=== PATIENT | female | born 1950 | race Hispanic/Latino ===

== ENCOUNTER 2019-03-09 11:58 | Observation (INO) | payer MEDICARE ==
[2019-03-09 12:53] LABS: #Lymphocytes 1.2 thou/uL (1.20-3.40); #Monocytes 0.5 thou/uL (0.11-0.59); #Neutrophils 3.4 thou/uL (1.40-6.50); %Eosinophils 0.8 % (0.0-10.0); %Lymphocytes 22.6 % (21.0-51.0); %Neutrophils 66.6 % (42.0-75.0); Hemoglobin 12.4 g/dL (12.0-16.0); Mean Corpuscular HGB CONC 32.4 g/dL (32.0-36.0); Mean Corpuscular Hemoglobin 30.9 pg (27.0-31.0); Mean Corpuscular Volume 95.4 fL (78.0-98.0); Platelet Count 136 thou/uL (130-400); RBC Distribution Width 12.7 % (11.5-14.5); Red Blood Cell (RBC) Count 4.02 mill/uL (4.20-5.40); White Blood Cell (WBC) Count 5.1 thou/uL (4.8-10.8)
[2019-03-09 13:14] LABS: ALT (SGPT) 10 U/L (8-55); AST (SGOT) 12 U/L (5-34); Alkaline Phosphatase 57 U/L (40-150); Anion Gap 8 mmol/L (10-20); BUN (Urea Nitrogen) 16 mg/dL (9.8-20.1); Bilirubin, Total 0.4 mg/dL (0.2-1.2); Calc. Creatinine Clearance 0 mL/min (70-130); Calcium 10.3 mg/dL (7.8-10.44); Carbon Dioxide 29 mmol/L (23-31); Chloride 109 mmol/L (98-107); Estimated GFR-MDRD 39; Globulin 2.9 g/dL (2.4-3.5); Glucose 105 mg/dL (80-115); Potassium 4.8 mmol/L (3.5-5.1); Protein, Total 6.9 g/dL (6.0-8.3); Sodium 141 mmol/L (136-145)
[2019-03-09] MEDS ORDERED: ISOVUE-370 76%-LOCM 1 ML ONE (13:38)
--- NOTE | 2019-03-09 14:48 | CT ---
CT Pelvis W Con HISTORY: Patient had heart catheterization last Ike now noting a knot in groin. COMPARISON: None. FINDINGS: A partially visualized cystic-appearing lesion is seen in the right lower quadrant presumab ly arising from the lower pole of the right kidney it measures 6 cm in size. There is an area of dense calcification with some associated soft tissue change along the anterior lateral margin of the right psoas muscle I believe this is related to phleboliths in this region. It is felt to be an incidental finding. There is no signs of any retroperitoneal hematoma. There is sigmoid diverticulosi s noted. In the right groin region directly anterior to the common femoral artery is an area of soft tissue de nsity which also shows what may be some minimal contrast within it this is only 19 mm in size it could represent a hematoma, but if this is true contrast enhancement within this, then it may represe nt a small pseudoaneurysm and ultrasound would be recommended for further assessment. IMPRESSION: Possible small pseudoaneurysm of the right groin as described above. Ultrasound examinati on would be recommended for better assessment.
--- NOTE | 2019-03-09 16:16 | ULT ---
US Pseudo Aneurysm Randy Evl HISTORY: Abnormal CT showing possible small pseudoaneurysm. COMPARISON: CT examination done earlier today. FINDINGS: Ultrasound study confirms the presence of a small pseudoaneurysm directly anterior to the r ight common femoral vein, the main abnormality visualized is a small trickle of flow arising from the common femoral artery, there is no significant hematoma present. IMPRESSION: Small pseudoaneurysm.
[2019-03-09] MEDS ORDERED: Fentanyl 100 MCG/2 ML VIAL ONE (16:32)
[2019-03-09] MEDS ORDERED: HYDROcodone/Acetaminophen 10/325 mg Tablet PO PRN (21:06)
[2019-03-09] MEDS ORDERED: Acetaminophen 325 MG TAB PO PRN (21:06)
[2019-03-09] MEDS ORDERED: Ondansetron ODT 4 MG TAB PO PRN (21:06)
[2019-03-09] MEDS ORDERED: diphenhydrAMINE 25 MG CAP PO PRN (21:09)
[2019-03-09] MEDS ORDERED: Labetalol HCl 100 MG/20 ML VIAL SLOW IVP PRN ×2 (21:29→21:30)
--- NOTE | 2019-03-09 21:35 | PDOC.FPRHP ---
- Allergies/Adverse Reactions Allergies Allergy/AdvReac Type Severity Reaction Status Date / Time budesonide [From Symbicort] Allergy Increase Verified 11/08/15 02:30 Glaucoma IOP codeine Allergy Verified 11/08/15 01:12 formoterol fumarate Allergy Increase Verified 11/08/15 02:30 [From Symbicort] Glaucoma IOP morphine Allergy Verified 11/08/15 01:12 acetaminophen [From Lortab] AdvReac Hives Verified 11/08/15 01:12 hydrocodone bitartrate AdvReac Hives Verified 11/08/15 01:12 [From Lortab] tizanidine AdvReac HALLUCINATI Verified 11/08/15 01:12 ON - Home Medications Medication Instructions Recorded Confirmed Type Brimonidine Tartrate [Brimonidine 1 drop EA EYE TID 11/08/15 11/08/15 History Tartrate 0.15% Ophth Soln] Docusate [Colace] 1 tab PO DAILY 11/08/15 11/08/15 History Fluticasone/Salmeterol [Advair 1 inh IH BID 11/08/15 11/08/15 History Diskus 250/50] Ipratropium/Albuterol Sulfate 1 puff INH QID 11/08/15 11/08/15 History [Combivent Respimat] Ipratropium/Albuterol Sulfate 3 ml NEB QID PRN 11/08/15 11/08/15 History [DuoNeb] Lactobacillus Acidophilus 1 cap PO DAILY 11/08/15 03/09/19 History [Probiotic] Methocarbamol [Robaxin-750] 0.5 tab PO QPM 11/08/15 03/09/19 History Montelukast Sodium [Singulair] 10 mg PO DAILY 11/08/15 03/09/19 History Ranitidine HCl 1 tab PO QPM 11/08/15 03/09/19 History metFORMIN [Glucophage] 1,000 mg PO BID-WM 11/08/15 03/09/19 History Ergocalciferol (Vitamin D2) 50,000 unit PO Q7DAYS #8 capsule 11/09/15 Rx [Vitamin D2] Lisinopril/Hydrochlorothiazide 1 tablet PO DAILY 11/09/15 03/09/19 History [Lisinopril-Hctz 20-12.5 mg Tab] Docusate [Colace] 03/09/19 History Fluticasone/Salmeterol [Advair 03/09/19 History Diskus 100/50] HYDROcodone/Acetaminophen [[place] 03/09/19 History 10-325 Tablet] Ipratropium/Albuterol Sulfate 03/09/19 History [DuoNeb] Levothyroxine Sodium [Synthroid] 125 mcg PO 0600 03/09/19 03/09/19 History Lovastatin [Mevacor] 20 gm PO DAILY 03/09/19 03/09/19 History - History PMHx: PSHx: FHx: Social: - Vital signs BP: [] HR: [] RR: [] Tmax: [] Pox: []% on [] Wt: [] FMR H&P: Results - Labs Result Diagrams: 03/09/19 12:40 03/09/19 12:40 Lab results: WBC 5.1 thou/uL (4.8-10.8) 03/09/19 12:40 Hgb 12.4 g/dL (12.0-16.0) 03/09/19 12:40 Hct 38.4 % (36.0-47.0) 03/09/19 12:40 MCV 95.4 fL (78.0-98.0) 03/09/19 12:40 Plt Count 136 thou/uL (130-400) 03/09/19 12:40 Neutrophils % 66.6 % (42.0-75.0) 03/09/19 12:40 Sodium 141 mmol/L (136-145) 03/09/19 12:40 Potassium 4.8 mmol/L (3.5-5.1) 03/09/19 12:40 Chloride 109 mmol/L (98-107) H 03/09/19 12:40 Carbon Dioxide 29 mmol/L (23-31) 03/09/19 12:40 BUN 16 mg/dL (9.8-20.1) 03/09/19 12:40 Creatinine 1.35 mg/dL (0.6-1.1) H 03/09/19 12:40 Glucose 105 mg/dL (80-115) 03/09/19 12:40 Calcium 10.3 mg/dL (7.8-10.44) 03/09/19 12:40 Total Bilirubin 0.4 mg/dL (0.2-1.2) 03/09/19 12:40 AST 12 U/L (5-34) 03/09/19 12:40 ALT 10 U/L (8-55) 03/09/19 12:40 Alkaline Phosphatase 57 U/L (40-150) 03/09/19 12:40 Serum Total Protein 6.9 g/dL (6.0-8.3) 03/09/19 12:40 Albumin 4.0 g/dL (3.4-4.8) 03/09/19 12:40 FMR H&P: Upper Level - Plan Date/Time: 03/09/192131 PCP: Pedro HPI: This is a68 yo F being admitted for evaluation of pseudoaneurysm s/p catheterization. She had a heart cath in the R groin on Friday 03/02 and per her report it was normal and she did not need any stents or interventions. She was having pain in her leg throughout the week but today noticed a lump in her right leg so came into the ED for evaluation. She states the pain is 8/10 when someone touches it but more manageable when at rest. She does not think movement exacerbated it during the day but is not sure, she was ambulating without difficulty during the week, she did her laundry walking up and down several sets of stairs multiple times. She did have some dizziness and nausea which she attributes to the pain, but denies syncope, chest pain, palpitations, or SOB at this time. 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 for 45 min twice After second course aneurysm appears to decreased in size on bedside US Fentanyl 100mcg 500ml NS PMH: COPD, DM2, hypothyroidism, iron def anemia, HTN, OA, chronic back/neck pain , CKD3 PSH: mult orthopedic surgeries hands and knees, Heart cath, thyroidectomy, neck fusion, hysterectomy, breast reduction Meds: Cymbalta, Advair, levothyroxine, lisinopril/hctz, lovastatin, metformin, singulair, ranitidine, norco 10mg q6 prn (says she only takes this 1-2 times per month), robaxin Allergies: codeine, morphine (itching), tizanidine Soc Hx: 1-2 cigarettes per day since age 22, 1ppd at most, social alcohol, no drugs Fm Hx: father colon cancer, heart disease (unsure of age of onset) REVIEW OF SYSTEMS: Gen: no fever, chills, or sweats Neuro: no numbness/tingling, no weakness, denies headache Eyes: no visual changes ENT: no hearing changes, no sore throat, no runny nose Resp: no cough, no SOB, no wheeze Card: denies chest pain, no palpitations GI: no vomiting, no diarrhea, no abdominal pain, + nausea : no dysuria, no hematuria MSK: see hpi Heme: see hpi Skin: no rash, no erythema Vitals: 114/67, Pulse: 75, Resp: 14, Temp: 98.2 (Oral), O2 sat: 96 on Room Air , kg 77 PHYSICAL EXAMINATION: General: NAD, alert and oriented x3 HEENT: PERRLA, EOMI, normal sclera, oropharynx without erythema or exudate Neck: Supple. Full ROM. Heart/Cardiovascular System: RRR, no rub, no murmur Lungs/Respiratory System: clear to auscultation bilaterally. No increased work of breathing. Room air. Abdomen/Gastro-Intestinal System: no abdominal tenderness, normal bowel sounds, no masses, no organomegaly Extremeties: 1 x2 cm nodule at right groin, pulses intact, cap refill <3 Neuro: No gross deficits appreciated. CN 2-12 grossly intact Psychiatry: Awake, Alert and cooperative with exam Skin/ Integumentory: No lesions, rashes, or ulcers, easy bruising throughout A/P: # Pseudoaneurysm s/p catheterization - 1.25 x 0.5 cm on US, appears to have improved on bedside US after holding pressure - in setting of pain and >1 cm evaluation is warranted, CV surgery was consulted from ED and recd admission. Based on bedside US may do ok without intervention. Appreciate CV surg recs - bed rest, pain control, NPO overnight [email or web address] # HTN - home meds - PRN labetalol # COPD - home meds, nebs prn # DM2 - metformin, HH diet, consistent carbs # CKD3 - appears to be at baseline Cr, compared to 2016 labs Fluids: NS 100ml/hr Code status: full PPx: none, bleeding risk Dispo: pending CV eval Addendum - Attending - Attending Attestation Date/Time: 03/09/19 6430 I personally evaluated the patient and discussed the management with Dr. Ramos I agree with the History, Examination, Assessment and Plan documented above with any addition or exceptions noted below. Pleasant 68 yo HTN DM2 female s/p negative heart cath last week with development pseudoanuersym right groin cath site pressure held on site for 90 minutes in ER and and will admit patient for observation and Cardiovascular to evaluate in am she is NPO for now and hemodynamically stable. PMHX notable for CKD for which metformin and ACEI held and assumed prior diverticular bleed requiring multiple transfusions in the past none last 3 years. Ovarian/uterine carcinoma s/p hysterectomy oophorectomy.
--- NOTE | 2019-03-09 22:18 | PDOC.EVN ---
Event Note - Event Note Event Note: Paged for "dark chocolate" colored stool, ordered FOBT which came back positive Patient came in with supratherapeutic INR, GI bleed is possibility BP was 69/29 with patient resting comfortably on L side, patient AxOx3, knows president, complains about leg pain Re-positioned patient. BP 86/40 Will bolus 500ml. Trying to be judicious on fluid resuscitation 2/2 ESRD. With lactic acid trending down to 0.7 it appears she is perfusing tissues will. Will hold off from pressors for now, but watch closely
[2019-03-09 22:55] VITALS: BMI 32.3
--- NOTE | 2019-03-09 23:11 | PDOC.EVN ---
Event Note - Event Note Event Note: Cath was done at Med do not have records
[2019-03-09] MEDS: Sodium Chloride 0.9% 1,000 ML IV SCH (23:57)
[2019-03-10 04:53] LABS: #Eosinphils 0.1 thou/uL (0.0-0.7); #Lymphocytes 1.3 thou/uL (1.20-3.40); #Monocytes 0.6 thou/uL (0.11-0.59); #Neutrophils 2.6 thou/uL (1.40-6.50); %Basophils 0.5 % (0.0-1.0); %Eosinophils 1.5 % (0.0-10.0); %Lymphocytes 27.4 % (21.0-51.0); %Monocytes 12.4 % (0.0-10.0); %Neutrophils 58.2 % (42.0-75.0); Hemoglobin 12.4 g/dL (12.0-16.0); Mean Corpuscular HGB CONC 32.4 g/dL (32.0-36.0); Mean Corpuscular Hemoglobin 30.9 pg (27.0-31.0); Mean Corpuscular Volume 95.5 fL (78.0-98.0); Platelet Count 136 thou/uL (130-400); RBC Distribution Width 12.8 % (11.5-14.5); Red Blood Cell (RBC) Count 4.01 mill/uL (4.20-5.40); White Blood Cell (WBC) Count 4.6 thou/uL (4.8-10.8)
[2019-03-10 05:15] LABS: Anion Gap 8 mmol/L (10-20); BUN (Urea Nitrogen) 10 mg/dL (9.8-20.1); Calc. Creatinine Clearance 70 mL/min (70-130); Calcium 9.9 mg/dL (7.8-10.44); Carbon Dioxide 28 mmol/L (23-31); Chloride 109 mmol/L (98-107); Estimated GFR-MDRD 56; Glucose 102 mg/dL (80-115); Potassium 4.3 mmol/L (3.5-5.1); Sodium 141 mmol/L (136-145)
--- NOTE | 2019-03-10 05:56 | PDOC.FM ---
- Subjective Subjective: Still a little nauseous. She says she is no longer dizzy, but thinks it is dependent on laying down. She has a headache, but she hasn't eaten in 2 days and she has a history of migraines. She has some sensitivity to light but she says it is not to bad. Localized to R forehead, constant, and dull. She has pain in the R lower abdomen to the R proximal thigh. - Objective MAR Reviewed: Yes Vital Signs & Weight: Vital Signs (12 hours) Temp Pulse Resp BP BP Pulse Ox 03/10/19 04:00 97.9 F 51 L 18 136/63 96 03/10/19 00:00 20 03/09/19 22:16 98.2 F 60 20 168/73 H 96 03/09/19 21:06 967 H Weight Weight 80.371 kg Result Diagrams: 03/10/19 04:32 03/10/19 04:32 EKG Reviewed by me: Yes (5 beats of VTach overnight, Sinus lula, Minor ST depression on Tele) Phys Exam - Physical Examination Constitutional: NAD HEENT: PERRLA, moist MMs Neck: supple Respiratory: clear to auscultation bilateral Cardiovascular: RRR Systolic murmur Gastrointestinal: soft, non-tender, positive bowel sounds Musculoskeletal: no edema Neurological: non-focal, moves all 4 limbs Lymphatic: no nodes Psychiatric: normal affect, A&O x 3 Deviation from normal: Bruising in the lower right abdomen and right proximal thigh Dx/Plan (1) Aneurysm artery, femoral Code(s): I72.4 - ANEURYSM OF ARTERY OF LOWER EXTREMITY Status: Acute (2) CKD stage 3 secondary to diabetes Code(s): E11.22 - TYPE 2 DIABETES MELLITUS W DIABETIC CHRONIC KIDNEY DISEASE; N18.3 - CHRONIC KIDNEY DISEASE, STAGE 3 (MODERATE) Status: Chronic (3) COPD (chronic obstructive pulmonary disease) Status: Chronic Qualifiers: COPD type: unspecified COPD Qualified Code(s): J44.9 - Chronic obstructive pulmonary disease, unspecified (4) DMII (diabetes mellitus, type 2) Status: Acute Qualifiers: Diabetes mellitus complication status: with kidney complications Diabetes mellitus complication detail: with chronic kidney disease Chronic kidney disease stage: stage 3 (moderate) (5) HTN (hypertension) Code(s): I10 - ESSENTIAL (PRIMARY) HYPERTENSION Status: Chronic (6) Hypothyroid Code(s): E03.9 - HYPOTHYROIDISM, UNSPECIFIED Status: Chronic Qualifiers: Hypothyroidism type: postoperative Qualified Code(s): E89.0 - Postprocedural hypothyroidism - Plan Plan: Ms. Reno is a 68 yo F with history of COPD, DMII, Hypothyroidism, Iron deficiency anemia, HTN, OA, Chronic back/neck pain, CKD3 who presents with R groin pseudoaneurysm s/p cath (03/02 @ the Med). 1. Pseudoaneurysm s/p catheterization * 1.25 x 0.5 cm on US, appears to have improved on bedside US after Cath team held pressure in ED * CT: Possible small pseudoaneurysm of right groin, better assessed with US. * In setting of pain and >1 cm evaluation is warranted, CV surgery was consulted from ED and recd admission. Based on bedside US may do ok without intervention. * CV surg consulted, appreciate recs. Surgery was planned, but US again and determined strict bed rest for now. * Bed rest, pain control, NPO overnight 2. HTN * home meds: Lisinopril/HCTZ * PRN labetalol 3. COPD * Home meds: Dulera, Singulair * Duonebs prn 4. DM2 * Metformin, HH diet, consistent carbs 5. CKD3 * Appears to be at baseline Cr, compared to 2016 labs * Cr Cl: 69 ml/min 6. Hypothyroidism s/p Thyroidectomy * Contine Levo 7. HLD * Continue home med: Simvistatin Fluids: NS 100ml/hr Diet: HH Code status: Full Code GI PPx: Pepcid VTE PPx: None, bleeding risk Dispo: Pending CV eval. Possibly 1-2 night stay. Addendum - Attending - Attending Attestation Date/Time: 03/10/19 920 I personally evaluated the patient and discussed the management with Dr. Garber I agree with the History, Examination, Assessment and Plan documented above with any addition or exceptions noted below. Continue medical management chronic conditions and observation regard any need surgical intervention.
[2019-03-10] MEDS: Levothyroxine Sodium 125 MCG TAB PO SCH (06:00)
--- NOTE | 2019-03-10 06:17 | CON ---
DATE OF CONSULTATION: HISTORY OF PRESENT ILLNESS: This is a 68-year-old female followed by Dr. stockton and referred to Dr. Cornelio Carias for stress testing. This ultimately lead to a cardiac catheterization and all results are unavailable to me. However, the patient says her cardiac cath was normal. Catheterization was done on 03/02, and the patient noted some sensitivity in the right groin, progressing to discomfort, and she presented to the emergency room where she was found to have a right femoral false aneurysm. Compression x2 resulted in failure of the femoral artery leak to subside. PAST MEDICAL HISTORY: Includes hypertension, currently not on lisinopril because her blood pressure was low when she visited Dr. stockton. she has diabetes mellitus, currently trying to control this with diet only and not using metformin. She also has elevated cholesterol level. She does smoke. She has a history of COPD. PAST SURGICAL HISTORY: Significant for multiple procedures on her, including orthopedic surgery of hand and knees, thyroid surgery, neck fusion, hysterectomy , and breast reduction. HOME MEDICATIONS: Are listed as [id number] medicines; 1. Cymbalta 30 b.i.d. 2. Iron 150 at bedtime. 3. Eye drops. 4. Advair Diskus. 5. DuoNebs. 6. Combivent. 7. Ranitidine 150 q.p.m. 8. Lovastatin 20 at bedtime. 9. Levothyroxine 125 daily. 10. Singulair. ALLERGIES: SHE REPORTS ALLERGIES TO CODEINE AND MORPHINE, ALTHOUGH SHE DOES TAKE NORCO AT HOME. PHYSICAL EXAMINATION: GENERAL: Alert and cooperative lady. VITAL SIGNS: Height 5 feet 2 inches, weight 177. EXTREMITIES: Examination of her lower extremities reveals palpable pulsatile mass above the puncture site which is very tender. She has bruising in that area as well as extending down to the mid thigh with palpable popliteal pulse. Given the compression treatment on 2 occasions and still with a tender pulsatile mass, we will plan on surgical exploration today. Informed consent has been obtained. Job ID: [id number] MTDD
[2019-03-10] MEDS: Mometasone/Formoterol 120 PUFF INHALER INH SCH ×2 (07:30→18:57)
[2019-03-10] MEDS ORDERED: metFORMIN 500 MG TAB PO SCH (08:00)
[2019-03-10] MEDS: DULoxetine 30 MG CAP PO SCH ×2 (08:48→20:19)
[2019-03-10] MEDS: Montelukast Sodium 10 mg Tablet PO SCH (08:49)
[2019-03-10] MEDS: Ascorbic Acid 500 mg Chewable Tablet PO SCH (08:49)
[2019-03-10] MEDS: Sodium Chloride 0.9% 1,000 ML IV SCH ×3 (08:49→21:12)
[2019-03-10] MEDS: Cyanocobalamin (Vitamin B-12) 1,000 MCG TAB PO SCH (08:49)
[2019-03-10] MEDS: Docusate 100 MG CAP PO SCH (08:49)
[2019-03-10] MEDS: Lisinopril/Hydrochlorothiazide 20 mg/12.5 mg Tablet PO SCH ×2 (08:50→12:43)
[2019-03-10] MEDS ORDERED: SOY ISOFLA PO SCH (09:00)
[2019-03-10] MEDS ORDERED: Prevnar 13-Val Conj/PF 0.5 ML SYRINGE IM ONE (09:00)
[2019-03-10] MEDS ORDERED: [UNRECOGNIZED DRUG - OTHER] PO SCH (09:00)
[2019-03-10] MEDS ORDERED: BLK COHOSH PO SCH (09:00)
[2019-03-10] MEDS ORDERED: MAG BARK PO SCH (09:00)
--- NOTE | 2019-03-10 10:04 | ULT ---
RIGHT GROIN ULTRASOUND: HISTORY: Evaluation of pseudoaneurysm. COMPARISON: Prior day's exam. FINDINGS: On today's study, the small pseudoaneurysm noted on the prior examination does not show any flow. A small 5 x 17 mm area of hematoma is noted. IMPRESSION: No flow is demonstrated within the previously noted pseudoaneurysm. POS: [facility]
[2019-03-10] MEDS: Simvastatin 5 MG TAB PO SCH (20:20)
[2019-03-10] MEDS: Fish Oil 1,000 MG CAP PO SCH (20:20)
[2019-03-10] MEDS: Famotidine 20 MG TAB PO SCH (20:20)
[2019-03-10] MEDS: Ferrous Sulfate 325 MG TAB PO SCH (20:20)
[2019-03-11 05:09] LABS: #Eosinphils 0.1 thou/uL (0.0-0.7); #Lymphocytes 1.3 thou/uL (1.20-3.40); #Monocytes 0.7 thou/uL (0.11-0.59); %Basophils 0.4 % (0.0-1.0); %Lymphocytes 21.7 % (21.0-51.0); %Neutrophils 65.8 % (42.0-75.0); Hemoglobin 12.4 g/dL (12.0-16.0); Mean Corpuscular HGB CONC 32.8 g/dL (32.0-36.0); Mean Corpuscular Hemoglobin 31.3 pg (27.0-31.0); Mean Corpuscular Volume 95.4 fL (78.0-98.0); Mean Platelet Volume 9.2 fL (7.4-10.4); Platelet Count 130 thou/uL (130-400); RBC Distribution Width 12.7 % (11.5-14.5); Red Blood Cell (RBC) Count 3.98 mill/uL (4.20-5.40)
[2019-03-11 05:29] LABS: Anion Gap 10 mmol/L (10-20); BUN (Urea Nitrogen) 12 mg/dL (9.8-20.1); Calc. Creatinine Clearance 66 mL/min (70-130); Calcium 10.1 mg/dL (7.8-10.44); Carbon Dioxide 27 mmol/L (23-31); Chloride 107 mmol/L (98-107); Estimated GFR-MDRD 53; Glucose 103 mg/dL (80-115); Potassium 4.7 mmol/L (3.5-5.1); Sodium 139 mmol/L (136-145)
[2019-03-11] MEDS: Levothyroxine Sodium 125 MCG TAB PO SCH (05:37)
[2019-03-11] MEDS: Mometasone/Formoterol 120 PUFF INHALER INH SCH ×2 (07:09→18:48)
[2019-03-11] MEDS: Sodium Chloride 0.9% 1,000 ML IV SCH ×3 (07:09→18:25)
--- NOTE | 2019-03-11 07:40 | PDOC.FM ---
- Subjective Subjective: Pt complains of overnight R sciatic pain. Air mattress placed last night, says pain is much improved. - Objective MAR Reviewed: Yes Vital Signs & Weight: Vital Signs (12 hours) Temp Pulse Resp BP BP Pulse Ox 03/11/19 07:11 98 F 62 18 150/71 H 94 L 03/11/19 04:00 98.2 F 56 L 16 138/64 97 03/11/19 00:00 98.3 F 56 L 18 158/68 H 158/68 H 95 03/10/19 20:00 98.1 F 65 18 135/62 135/62 95 Weight Weight 81.329 kg I&O: 03/10/19 03/11/19 03/12/19 06:59 06:59 06:59 Intake Total 580 3945 Output Total 700 2700 Balance -120 1245 Result Diagrams: 03/11/19 04:34 03/11/19 04:34 EKG Reviewed by me: Yes (Normal sinus rhythm. HR: 50-60s) Phys Exam - Physical Examination Constitutional: NAD HEENT: PERRLA Neck: supple Respiratory: clear to auscultation bilateral Cardiovascular: RRR, no significant murmur Gastrointestinal: soft, positive bowel sounds Tender in RLQ near cath site Musculoskeletal: no edema, pulses present Right sciatic nerve pain Neurological: non-focal, moves all 4 limbs Lymphatic: no nodes Psychiatric: normal affect, A&O x 3 Skin: no rash Deviation from normal: Bruising in R groin Dx/Plan (1) Aneurysm artery, femoral Code(s): I72.4 - ANEURYSM OF ARTERY OF LOWER EXTREMITY Status: Acute (2) CKD stage 3 secondary to diabetes Code(s): E11.22 - TYPE 2 DIABETES MELLITUS W DIABETIC CHRONIC KIDNEY DISEASE; N18.3 - CHRONIC KIDNEY DISEASE, STAGE 3 (MODERATE) Status: Chronic (3) COPD (chronic obstructive pulmonary disease) Status: Chronic Qualifiers: COPD type: unspecified COPD Qualified Code(s): J44.9 - Chronic obstructive pulmonary disease, unspecified (4) DMII (diabetes mellitus, type 2) Status: Acute Qualifiers: Diabetes mellitus complication status: with kidney complications Diabetes mellitus complication detail: with chronic kidney disease Chronic kidney disease stage: stage 3 (moderate) (5) HTN (hypertension) Code(s): I10 - ESSENTIAL (PRIMARY) HYPERTENSION Status: Chronic (6) Hypothyroid Code(s): E03.9 - HYPOTHYROIDISM, UNSPECIFIED Status: Chronic Qualifiers: Hypothyroidism type: postoperative Qualified Code(s): E89.0 - Postprocedural hypothyroidism - Plan Plan: Ms. Reno is a 68 yo F with history of COPD, DMII, Hypothyroidism, Iron deficiency anemia, HTN, OA, Chronic back/neck pain, CKD3 who presents with R groin pseudoaneurysm s/p cath (03/02 @ the [facility]). 1. Pseudoaneurysm s/p catheterization * 1.25 x 0.5 cm on US, appears to have improved on bedside US after Cath team held pressure in ED * CT: Possible small pseudoaneurysm of right groin, better assessed with US. * In setting of pain and >1 cm evaluation is warranted, CV surgery was consulted from ED and recd admission. Based on bedside US may do ok without intervention. * CV surg consulted, appreciate recs. Surgery was planned, but US again 03/10 showed no flow in pseudoaneurysm and determined strict bed rest for now. * Bed rest, pain control, NPO overnight 2. HTN * Home med restarted: Lisinopril/HCTZ * Monitoring Creatinine: 1.03 today * PRN labetalol * BP elevated today, pt says due to sciatic pain 3. COPD * Home meds: Dulera, Singulair * Duonebs prn 4. DM2 * Consistent Carb diet * Dietary management, stopped metformin 3 years ago * Glucose 108 this morning 5. CKD3 * Appears to be at baseline Cr, compared to 2016 labs * Cr Cl: 69 ml/min 03/10 * Electrolytes normal, Ma.0 6. Hypothyroidism s/p Thyroidectomy * Contine Levo * TSH: 2.47 7. HLD * Continue home med: Simvistatin Fluids: NS 100ml/hr Diet: CC Code status: Full Code GI PPx: Pepcid VTE PPx: None, bleeding risk Dispo: Pending CV eval. Possibly 1-2 night stay. Addendum - Attending - Attending Attestation Date/Time: 03/11/19 1300 I personally evaluated the patient and discussed the management with Dr. Garber I agree with the History, Examination, Assessment and Plan documented above with any addition or exceptions noted below. BP elevated will adjust rx otherwise expectant management for any need operative intervention right groin pseudoaneursym s/p heart cath.
[2019-03-11] MEDS: DULoxetine 30 MG CAP PO SCH ×2 (08:34→20:26)
[2019-03-11] MEDS: Lisinopril/Hydrochlorothiazide 20 mg/12.5 mg Tablet PO SCH (08:34)
[2019-03-11] MEDS: Cyanocobalamin (Vitamin B-12) 1,000 MCG TAB PO SCH (08:34)
[2019-03-11] MEDS: Ascorbic Acid 500 mg Chewable Tablet PO SCH (08:34)
[2019-03-11] MEDS: Docusate 100 MG CAP PO SCH (08:34)
[2019-03-11] MEDS: Montelukast Sodium 10 mg Tablet PO SCH (08:35)
[2019-03-11] MEDS ORDERED: Amlodipine 5 MG TAB PO SCH (14:45)
[2019-03-11] MEDS: Simvastatin 5 MG TAB PO SCH (20:25)
[2019-03-11] MEDS: Ferrous Sulfate 325 MG TAB PO SCH (20:26)
[2019-03-11] MEDS: Fish Oil 1,000 MG CAP PO SCH (20:26)
[2019-03-11] MEDS: Famotidine 20 MG TAB PO SCH (20:26)
[2019-03-12] MEDS: Sodium Chloride 0.9% 1,000 ML IV SCH (04:42)
[2019-03-12] MEDS: Levothyroxine Sodium 125 MCG TAB PO SCH (06:03)
--- NOTE | 2019-03-12 06:08 | PDOC.FM ---
- Subjective Subjective: No acute events overnight. Patient doing well. Reports her tight groin is still mildly tender to palpation, but much improved. Ate a fruit plate last night for dinner, tolerated it well. Eager to go home. Denies chest pain, SOB, abdominal pain, dizziness. - Objective Vital Signs & Weight: Vital Signs (12 hours) Temp Pulse Resp BP BP Pulse Ox 03/12/19 04:00 98.5 F 64 18 139/66 95 03/12/19 00:00 98.8 F 64 18 134/64 95 03/11/19 20:00 98.6 F 72 18 147/68 H 147/68 H 96 Weight Weight 80.83 kg I&O: 03/10/19 03/11/19 03/12/19 06:59 06:59 06:59 Intake Total 580 3945 3590 Output Total 700 2700 6980 Balance -120 5880 -3080 Result Diagrams: 03/11/19 04:34 03/11/19 04:34 Radiology Reviewed by me: Yes Phys Exam - Physical Examination Constitutional: NAD HEENT: moist MMs Respiratory: no wheezing, no rales, no rhonchi Cardiovascular: RRR, no significant murmur Gastrointestinal: soft, non-tender Musculoskeletal: no edema Deviation from normal: Ecchymosis surrounding location on R groin where they did her heart cath. -: Mild ecchymosis on R wrist where they first attempted heart cath. Dx/Plan (1) Aneurysm artery, femoral Code(s): I72.4 - ANEURYSM OF ARTERY OF LOWER EXTREMITY Status: Acute (2) DMII (diabetes mellitus, type 2) Status: Acute Qualifiers: Diabetes mellitus complication status: with kidney complications Diabetes mellitus complication detail: with chronic kidney disease Chronic kidney disease stage: stage 3 (moderate) (3) Hypertriglyceridemia Code(s): E78.1 - PURE HYPERGLYCERIDEMIA Status: Acute (4) CKD stage 3 secondary to diabetes Code(s): E11.22 - TYPE 2 DIABETES MELLITUS W DIABETIC CHRONIC KIDNEY DISEASE; N18.3 - CHRONIC KIDNEY DISEASE, STAGE 3 (MODERATE) Status: Chronic (5) COPD (chronic obstructive pulmonary disease) Status: Chronic Qualifiers: COPD type: unspecified COPD Qualified Code(s): J44.9 - Chronic obstructive pulmonary disease, unspecified (6) HTN (hypertension) Code(s): I10 - ESSENTIAL (PRIMARY) HYPERTENSION Status: Chronic (7) Hypothyroid Code(s): E03.9 - HYPOTHYROIDISM, UNSPECIFIED Status: Chronic Qualifiers: Hypothyroidism type: postoperative Qualified Code(s): E89.0 - Postprocedural hypothyroidism - Plan Plan: Ms. Reno is a 68 yo F with history of COPD, DMII, Hypothyroidism, Iron deficiency anemia, HTN, OA, Chronic back/neck pain, CKD3 who presents with R groin pseudoaneurysm s/p cath (03/02 [facility] # Pseudoaneurysm s/p catheterization * 1.25 x 0.5 cm on US, appears to have improved on bedside US after Cath team held pressure in ED * CT: Possible small pseudoaneurysm of right groin, better assessed with US. * In setting of pain and >1 cm evaluation is warranted, CV surgery was consulted from ED and recd admission. Based on bedside US may do ok without intervention. * CV surg consulted, appreciate recs. US 03/10 showed no flow in pseudoaneurysm and determined strict bed rest for now vs surgery. * Bed rest, pain control # HTN * Home med restarted 03/10: Lisinopril/HCTZ * Monitoring Creatinine: 1.03 03/11 * PRN labetalol * BP this am 139/66, 134/64 at 0000 earlier this am # COPD * Home meds: Dulera, Singulair * Duonebs prn # DM2 * Consistent Carb diet, d/c fluids * Dietary management, stopped metformin 3 years ago * Glucose 114 this morning # CKD3 * Appears to be at baseline Cr of 1.03, 1.35 on admission, compared to 2016 labs * GFR 53, 39 on admission * Cr Cl: 69 ml/min 03/10 * Electrolytes normal, Ma.0 # Hypothyroidism s/p Thyroidectomy * Contine Levo * TSH: wnl at 2.47 # HLD * Continue home med: Simvistatin Fluids: NS 100ml/hr Diet: CC Code status: Full Code GI PPx: Pepcid VTE PPx: None, bleeding risk Dispo: Likely d/c today following Dr. Willis's recs. Addendum - Attending - Attending Attestation Date/Time: 03/12/19 1700 I personally evaluated the patient and discussed the management with Dr. Bran. I agree with the History, Examination, Assessment and Plan documented above with any addition or exceptions noted below. Swelling in groin is improving. Will f/u with CV surg on possible discharge.
[2019-03-12] MEDS: Mometasone/Formoterol 120 PUFF INHALER INH SCH (06:34)
[2019-03-12] MEDS: Cyanocobalamin (Vitamin B-12) 1,000 MCG TAB PO SCH (08:36)
[2019-03-12] MEDS: Lisinopril/Hydrochlorothiazide 20 mg/12.5 mg Tablet PO SCH (08:37)
[2019-03-12] MEDS: Docusate 100 MG CAP PO SCH (08:37)
[2019-03-12] MEDS: Ascorbic Acid 500 mg Chewable Tablet PO SCH (08:37)
[2019-03-12] MEDS: Montelukast Sodium 10 mg Tablet PO SCH (08:37)
[2019-03-12] MEDS: DULoxetine 30 MG CAP PO SCH (08:37)
[2019-03-12] MEDS ORDERED: Amlodipine 5 MG TAB PO SCH (09:00)
[2019-03-12 12:44] VITALS: TEMP 98.6
[2019-03-12 14:00] VITALS: BP 132/65
--- NOTE | 2019-03-13 03:44 | DIS ---
DATE OF ADMISSION: 03/09/2019 DATE OF DISCHARGE: 03/12/2019 ADMITTING RESIDENT: Andres Ramos MD ADMITTING ATTENDING: Frank Prater MD. DISCHARGE RESIDENT: Ronit Bran MD DISCHARGE ATTENDING: Anna Smith MD. CONSULTS: Dr. Willis from Cardiovascular Surgery. PROCEDURES: None. IMAGIN. 03/09, pelvic CT: Possible small pseudoaneurysm versus hematoma of the right groin, 19 mm in size. 2. 03/09, compression ultrasound: Small pseudoaneurysm. 3. 03/10, compression ultrasound: No flow demonstrated in previously recognized pseudoaneurysm. PRIMARY DIAGNOSIS: R Femoral pseudoaneurysm with no flow, SECONDARY DIAGNOSES: HTN, COPD, DM2, CKD3, HLD, Hypothyroidism status post thyroidectomy DISCHARGE MEDICATIONS: 1. Amlodipine 5 mg p.o. daily. 2. Vitamin C 1000 mg p.o. daily. 3. Brimonidine tartrate 15 ml one drop each eye at bedtime. 4. Vitamin D3 80685 units p.o. at bedtime. 5. B12 2500 mcg p.o. daily. 6. Cymbalta 30 mg p.o. b.i.d. 7. Advair Diskus 100/50 one puff inhaled b.i.d. 8. Combivent Respimat 2 puffs inhaled daily. 9. Iron 325 mg p.o. at bedtime. 10. Levothyroxine 125 mcg p.o. daily. 11. Lisinopril/HCTZ 20/12.5 p.o. daily. 12. Lovastatin 20 mg p.o. at bedtime. 13. Montelukast 10 mg p.o. at bedtime. 14. Fish oil 1000 mg p.o. at bedtime. 15. Ranitidine 150 mg p.o. at bedtime. 16. Estroven 155 mg p.o. daily. DISCONTINUED MEDICATIONS: 1. Famotidine 20 mg p.o. at bedtime. 2. Woodruff 10/325 q.4h p.r.n. 3. Benadryl 25 mg p.o. q.6h p.r.n. 4. Colace 100 mg p.o. daily. 5. Dulera 2 puffs inhaled b.i.d. 6. Simvastatin 10 mg p.o. at bedtime. 7. Normal saline. HISTORY OF PRESENT ILLNESS/HOSPITAL COURSE: The patient is admitted for evaluation of suspected pseudoaneurysm status post catheterization of the heart at the [facility] on 03/02. The patient was placed on strict bedrest with n.p.o. so that Dr. Willis from Cardiovascular Surgery, evaluate her and decide to plan for surgery. Planned for surgery on 03/11, but 03/10 ultrasound showed no flow in pseudoaneurysm, so surgery was canceled. The patient had some sciatic pain during admission, but this was alleviated with air mattress. Home medications were continued for hypertension with amlodipine added, and COPD. The patient was discharged in a stable condition with no concerns, and only mild tenderness to palpation of her right groin. She was eating and passing bowel movements. PT evaluated her and cleared her for discharge. DISPOSITION: Stable. DISCHARGE INSTRUCTIONS: 1. Location: Home. 2. Diet: Carb counting. 3. Activity: As tolerated. No heavy lifting. 4. Follow up with PCP within 1 week. Job ID: [id number] [facility]
== END 2019-03-12 17:40 | disposition home or self-care (01) ==
LOC: ERS 11:58 → 2NO 20:37
PROVIDERS: ADMIT Family Medicine; ATTEND Family Medicine
DX: I72.4 Aneurysm of artery of lower extremity (principal); I12.9 Hypertensive chronic kidney disease with stage 1 through stage 4 chronic kidney disease, or unspecified chronic kidney disease; E11.22 Type 2 diabetes mellitus with diabetic chronic kidney disease; N18.9 Chronic kidney disease, unspecified; E78.5 Hyperlipidemia, unspecified; E89.0 Postprocedural hypothyroidism; J44.9 Chronic obstructive pulmonary disease, unspecified; D50.9 Iron deficiency anemia, unspecified; F17.210 Nicotine dependence, cigarettes, uncomplicated; M19.90 Unspecified osteoarthritis, unspecified site; G89.29 Other chronic pain; M54.2 Cervicalgia; Z79.899 Other long term (current) drug therapy; Z88.5 Allergy status to narcotic agent; Z88.8 Allergy status to other drugs, medicaments and biological substances
CPT/HCPCS: 72193; 76936 ×2; 80048 ×2; 80053; 82962 ×3; 83735; 84443; 85025 ×3; 93005; 94640 ×3; 96361 ×4; 96374; 97139; 99285; G0378 ×5; 36415; 36416; J3010; Q0163; Q9966

== ENCOUNTER 2019-09-07 09:39 | Outpatient (CLI) | payer MEDICARE ==
--- NOTE | 2019-09-07 11:07 | ULT ---
ULTRASOUND ABDOMEN: HISTORY: Abdominal pain FINDINGS: There is a 1.3 x 1.4 x 1.7 cm hyperechoic lesion in the right lobe of the liver no intra or extrahepa tic biliary ductal dilatation is seen. The common duct measures 4 mm in diameter. No gallstones, gallbladder wall thickening or pericholecystic fluid is seen. There are multiple cysts in the right kidney, the largest is in the inferior pole measuring 6.8 cm. A 1.1 cm cyst is seen in the left kidney. No hydronephrosis is noted in either side. The spleen and visualized portions of the aorta and IVC appear normal. The pancreas is not well visua lized due to overlying bowel gas. No free fluid is seen. IMPRESSION: 1. Right liver lobe mass. CT scan using the hemangioma protocol is recommended. 2. Bilateral renal cysts.
== END 2019-09-07 09:40 | disposition home or self-care (01) ==
LOC: SCSULT 09:39
PROVIDERS: ATTEND Family Medicine
DX: R10.9 Unspecified abdominal pain (principal); N28.1 Cyst of kidney, acquired; R16.0 Hepatomegaly, not elsewhere classified
CPT/HCPCS: 93975

== ENCOUNTER 2020-05-29 12:51 | Outpatient (CLI) | payer MEDICARE ==
[2020-05-29] MEDS ORDERED: Iopamidol-370 76% 500 ML 1 ML ONE (12:56)
--- NOTE | 2020-05-29 16:30 | CT ---
CT ABDOMEN AND PELVIS WITH AND WITHOUT IV CONTRAST: Date: 05/29/2020 HISTORY: Liver mass, renal cyst. FINDINGS: Correlation is made with the ultrasound abdomen of 09/07/[address] pelvis of 03/09/2019. The lung bases are clear. A tiny, 5.0 mm, low density lesion is seen in the posterior segment of the right lobe of the liver. N o other liver mass is seen to correspond to the finding on the ultrasound. No intra or extrahepatic b iliary ductal dilatation is identified. No calcified gallstones are noted. The pancreas and adrenal g lands are normal. There is a 13.0 mm low density lesion in the spleen, which does not demonstrate postcontrast enhancem ent and is likely a benign finding. No calculi seen in the kidneys, ureters, or the urinary bladder. No hydroureteronephrosis seen on eit her side. Bilateral renal cysts are seen. The largest of these is in the right kidney measuring 6.3 x 6.3 x 6.6 cm. There is a partially calcified soft tissue density in the right lower abdomen anterior to the right p soas muscle and beginning at the aortic bifurcation measuring 2.7 x 1.9 x 5.6 cm. This is stable sinc e the CT pelvis of 03/09/2019 and was probably also seen on the MRI lumbar spine of 01/07/2013. No free air, free fluid, or lymphadenopathy is seen. There are vascular calcifications without eviden ce of aneurysmal dilatation of the abdominal aorta. There are degenerative changes in the spine. Ther e is compression T11 vertebral body. The small bowel loops are not abnormally dilated. There is colonic diverticulosis without diverticuli tis. The patient is post hysterectomy. IMPRESSION: 1. Tiny low density lesion in the right lobe of the liver, too small to characterize. No other liver mass is seen 2. Bilateral renal cysts. 3. Benign-appearing 13.0 mm splenic lesion. 4. Colonic diverticulosis. POS: AH
== END 2020-05-29 12:52 | disposition home or self-care (01) ==
LOC: BICCT 12:51
PROVIDERS: ATTEND Family Medicine
DX: N28.1 Cyst of kidney, acquired (principal); R16.0 Hepatomegaly, not elsewhere classified; K57.30 Diverticulosis of large intestine without perforation or abscess without bleeding; K76.9 Liver disease, unspecified; D73.89 Other diseases of spleen
CPT/HCPCS: 74178; 82565; Q9967

== ENCOUNTER 2020-10-13 14:39 | Outpatient (CLI) | payer MEDICARE ==
--- NOTE | 2020-10-13 15:06 | RAD ---
EXAM: 3 views of the left shoulder HISTORY: Shoulder pain for years COMPARISON: None FINDINGS: There is no evidence of acute fracture or dislocation. Mild acromioclavicular degenerative changes are present. No significant glenohumeral degenerative changes. No soft tissue swelling is seen. The visualized thorax is unremarkable. Hardware seen in the cervical spine. IMPRESSION: Mild acromioclavicular osteoarthritis
--- NOTE | 2020-10-13 15:07 | RAD ---
EXAM: Chest 2 views: HISTORY: Chest pain and fever for 2 days COMPARISON: 11/07/2015 FINDINGS: There is an enlarged cardiomediastinal silhouette. There is no evidence of consolidation, mass, or pl eural effusion. Hardware seen in the cervical spine. Degenerative changes are seen in the spine. IMPRESSION: No evidence of acute cardiopulmonary disease
[2020-10-13 16:21] LABS: CKMB 1.8 ng/mL (0-6.6); Troponin I 0.014 ng/mL (< 0.028)
== END 2020-10-13 14:40 | disposition home or self-care (01) ==
LOC: SCSRAD 14:39
PROVIDERS: ATTEND Family Medicine
DX: R07.9 Chest pain, unspecified (principal); R06.00 Dyspnea, unspecified; M25.512 Pain in left shoulder; M19.012 Primary osteoarthritis, left shoulder
CPT/HCPCS: 36415; 71046; 82550; 82553; 84484; 85379

== ENCOUNTER 2020-10-21 10:52 | Outpatient (CLI) | payer MEDICARE ==
[2020-10-21] MEDS ORDERED: Iopamidol 370 76% 100 ML VIAL ONE (10:56)
--- NOTE | 2020-10-21 13:42 | CT ---
CT CHEST WITH CONTRAST CLINICAL INDICATION: Dyspnea. Shortness of breath for one month. COMPARISON: None FINDINGS: Aorta: The aorta is normal in caliber without evidence of an aortic dissection. Lungs: Mild atelectasis is present at each lung base. No discrete pulmonary nodule, mass, consolidati on, or pleural effusion is identified. Mediastinum: Heart is mildly enlarged. No enlarged mediastinal lymph nodes are seen. Thyroid gland: Normal CT appearance. Osseous structures: Again noted is abnormality involving the T11 vertebral body which may represent e ither a segmentation anomaly versus a chronic remote severe compression fracture T11 vertebral body. Exaggerated kyphosis at this level is present. These findings were present on the MRI thoracic spine in 2015 and unchanged. There is slight height loss central aspects of the superior endplates of the T3, T4, T5 and to a lesser extent T6 vertebral bodies which is also stable compared to study i n 2015 may be developmental or secondary to remote minimal compression deformities. Postoperative changes lower cervical spine are seen. Chest wall: No abnormality visualized. Upper abdomen: Multiple hypodense bilateral renal lesions are seen demonstrating attenuation coeffici ents compatible with cysts. Largest hypodense lesion in the midportion right kidney is incompletely imaged but measures 5.7 cm. Additional too small to characterize hypodense lesions are seen in each k idney. Packer of the stomach do appear mildly thickened especially along the greater curvature which may be r elated to incomplete distention. Gastritis would be difficult to entirely exclude. IMPRESSION: 1. No acute findings in the chest. 2. Suggested thickening of the packer of the stomach greater along the greater curvature which may be related to incomplete distention. Gastritis is a possibility. 3. Bilateral renal cysts and too small to characterize hypodense lesions in each kidney which are sta ble compared to CT abdomen on 05/29/2020. 4. Chronic findings involving thoracic spine. 5. Mild cardiomegaly.
== END 2020-10-21 10:53 | disposition home or self-care (01) ==
LOC: BICCT 10:52
PROVIDERS: ATTEND Family Medicine
DX: R06.00 Dyspnea, unspecified (principal); R79.1 Abnormal coagulation profile; N28.1 Cyst of kidney, acquired; I51.7 Cardiomegaly; N28.9 Disorder of kidney and ureter, unspecified
CPT/HCPCS: 71260; 82565; Q9967

== ENCOUNTER 2021-03-23 15:50 | Emergency (ER) | payer MEDICARE ==
[2021-03-23 16:31] LABS: Bacteria/HPF None Seen HPF (None Seen); Bilirubin Negative (Negative); Blood, Urine Negative (Negative); Clarity Clear (Clear); Glucose, Urine (Dipstick) Normal (Negative); Ketone, Urine Trace mg/dL (Negative); Leukocyte Negative Leu/uL (Negative); Nitrite Negative (Negative); Protein, Urine (Dipstick) 50 mg/dL (Neg-Trace); RBC/HPF 0-3 HPF (0-3); Specific Gravity, Urine 1.009 (1.002-1.036); Squamous Epithelial 0-3 HPF (0-3); Urobilinogen Normal mg/dL (Less than 2); WBC/HPF 0-3 HPF (0-3); pH, Urine 5.5 (5.0-9.0)
[2021-03-23 16:47] LABS: #Eosinphils 0.1 thou/uL (0.0-0.7); Mean Corpuscular Volume 96.4 fL (78.0-98.0)
[2021-03-23 16:58] LABS: #Lymphocytes 1.4 thou/uL (1.20-3.40); #Monocytes 0.4 thou/uL (0.11-0.59); %Basophils 0.5 % (0.0-1.0); %Lymphocytes 20.3 % (21.0-51.0); %Monocytes 6.1 % (0.0-10.0); %Neutrophils 72.1 % (42.0-75.0); Hemoglobin 15.6 g/dL (12.0-16.0); Mean Corpuscular HGB CONC 33.4 g/dL (32.0-36.0); Mean Corpuscular Hemoglobin 32.2 pg (27.0-31.0); Mean Platelet Volume 9.5 fL (7.4-10.4); Platelet Count 135 thou/uL (130-400); RBC Distribution Width 13.3 % (11.5-14.5); Red Blood Cell (RBC) Count 4.83 mill/uL (4.20-5.40); White Blood Cell (WBC) Count 6.9 thou/uL (4.8-10.8)
[2021-03-23 17:07] LABS: ALT (SGPT) 13 U/L (8-55); AST (SGOT) 18 U/L (5-34); Albumin 4.5 g/dL (3.4-4.8); Alkaline Phosphatase 71 U/L (40-110); Anion Gap 12 mmol/L (10-20); BUN (Urea Nitrogen) 14 mg/dL (9.8-20.1); Bilirubin, Total 0.5 mg/dL (0.2-1.2); Calc. Creatinine Clearance 0 mL/min (70-130); Calcium 10.2 mg/dL (7.8-10.44); Carbon Dioxide 26 mmol/L (23-31); Chloride 107 mmol/L (98-107); Globulin 3.1 g/dL (2.4-3.5); Glucose 107 mg/dL (80-115); Lipase 23 U/L (8-78); Potassium 4.5 mmol/L (3.5-5.1); Protein, Total 7.6 g/dL (5.8-8.1); Sodium 140 mmol/L (136-145)
[2021-03-23] MEDS ORDERED: Ketorolac Tromethamine 30 MG/ML VIAL ONE (20:45)
== END 2021-03-23 20:55 | disposition home or self-care (01) ==
LOC: ERS 15:50
DX: N32.89 Other specified disorders of bladder (principal)
CPT/HCPCS: 36415; 74176; 80053; 81003; 81015; 83690; 85025; 87086; 96374; J1885

== ENCOUNTER 2021-08-03 18:23 | Emergency (ER) | payer MEDICARE ==
[2021-08-03 19:30] LABS: #Basophils 0.1 thou/uL (0.0-0.2); #Eosinphils 0.1 thou/uL (0.0-0.7); #Lymphocytes 1.7 thou/uL (1.20-3.40); #Monocytes 0.6 thou/uL (0.11-0.59); #Neutrophils 3.7 thou/uL (1.40-6.50); %Eosinophils 1.9 % (0.0-10.0); %Lymphocytes 27.6 % (21.0-51.0); %Monocytes 9.7 % (0.0-10.0); %Neutrophils 59.8 % (42.0-75.0); Hemoglobin 14.5 g/dL (12.0-16.0); Mean Corpuscular HGB CONC 34.3 g/dL (32.0-36.0); Mean Corpuscular Hemoglobin 33.9 pg (27.0-31.0); Mean Corpuscular Volume 98.9 fL (78.0-98.0); Mean Platelet Volume 8.7 fL (7.4-10.4); Platelet Count 146 thou/uL (130-400); RBC Distribution Width 12.5 % (11.5-14.5); Red Blood Cell (RBC) Count 4.28 mill/uL (4.20-5.40); White Blood Cell (WBC) Count 6.2 thou/uL (4.8-10.8)
[2021-08-03] MEDS ORDERED: Aspirin 325 MG TAB ONE (19:54)
[2021-08-03 20:03] LABS: ALT (SGPT) 11 U/L (8-55); AST (SGOT) 13 U/L (5-34); Albumin 4.1 g/dL (3.4-4.8); Alkaline Phosphatase 62 U/L (40-110); Anion Gap 11 mmol/L (10-20); BUN (Urea Nitrogen) 18 mg/dL (9.8-20.1); Bilirubin, Total 0.3 mg/dL (0.2-1.2); Calc. Creatinine Clearance 0 mL/min (70-130); Calcium 9.9 mg/dL (7.8-10.44); Carbon Dioxide 23 mmol/L (23-31); Chloride 111 mmol/L (98-107); Globulin 2.7 g/dL (2.4-3.5); Glucose 115 mg/dL (80-115); Potassium 4.4 mmol/L (3.5-5.1); Protein, Total 6.8 g/dL (5.8-8.1); Sodium 141 mmol/L (136-145)
[2021-08-03] MEDS ORDERED: Nitroglycerin 2% Ointment 1 INCH/1 GM Packet ONE (20:06)
[2021-08-03 20:35] LABS: Bilirubin Negative (Negative); Blood, Urine Negative (Negative); Glucose, Urine (Dipstick) Negative (Negative); Ketone, Urine Negative (Negative); Leukocyte Negative (Negative); Nitrite Negative (Negative); Protein, Urine (Dipstick) 100 mg/dL (Neg-Trace); Urobilinogen 0.2 mg/dL (Less than 2)
[2021-08-03 20:42] LABS: Clarity Clear (Clear)
[2021-08-03 20:43] LABS: Specific Gravity, Urine 1.024 (1.002-1.036)
[2021-08-03 20:51] LABS: Bacteria/HPF None Seen HPF (None Seen); Mucous/LPF Rare LPF (<2+); RBC/HPF 0-3 HPF (0-3); Squamous Epithelial None Seen HPF (0-3); WBC/HPF 0-3 HPF (0-3)
== END 2021-08-03 22:57 | disposition short-term general hospital (02) ==
LOC: ERS 18:23
DX: I24.9 Acute ischemic heart disease, unspecified (principal); I10 Essential (primary) hypertension; E78.5 Hyperlipidemia, unspecified
CPT/HCPCS: 36415; 71045; 80053; 81003; 81015; 84484; 85025; 93005

== ENCOUNTER 2021-09-30 09:58 | Outpatient (CLI) | payer MEDICARE | END 2021-09-30 09:59 | disposition home or self-care (01) | LOC: BICMAMMO 09:58 | PROVIDERS: ATTEND Family Medicine | DX: Z12.31 Encounter for screening mammogram for malignant neoplasm of breast (principal); Z13.820 Encounter for screening for osteoporosis; Z98.890 Other specified postprocedural states; M81.0 Age-related osteoporosis without current pathological fracture | CPT/HCPCS: 77063; 77067; 77080 ==

== ENCOUNTER 2021-10-16 12:15 | Outpatient (CLI) | payer MEDICARE | END 2021-10-16 12:16 | disposition home or self-care (01) | LOC: BICRAD 12:15 | PROVIDERS: ATTEND Family Medicine | DX: R05.9 Cough, unspecified (principal) | CPT/HCPCS: 71046 ==

== ENCOUNTER 2023-04-28 10:44 | Outpatient (CLI) | payer OTHER | END 2023-04-28 10:45 | disposition home or self-care (01) | LOC: RAD 10:44 | PROVIDERS: ATTEND Family Medicine | DX: R05.9 Cough, unspecified (principal) | CPT/HCPCS: 71046 ==

== ENCOUNTER 2023-06-09 14:09 | Emergency (ER) | payer OTHER ==
[2023-06-09 14:55] LABS: #Monocytes 0.5 thou/uL (0.11-0.59); #Neutrophils 4.2 thou/uL (1.40-6.50); %Basophils 0.5 % (0.0-1.0); %Eosinophils 0.3 % (0.0-10.0); %Lymphocytes 19.6 % (21.0-51.0); %Monocytes 7.9 % (0.0-10.0); %Neutrophils 71.4 % (42.0-75.0); Hematocrit 31.7 % (36.0-47.0); Hemoglobin 10.1 g/dL (12.0-16.0); Mean Corpuscular HGB CONC 31.9 g/dL (32.0-36.0); Mean Corpuscular Hemoglobin 28.6 pg (27.0-31.0); Mean Corpuscular Volume 89.8 fl (78.0-98.0); Platelet Count 155 10x3/uL (130-400); RBC Distribution Width 15.2 % (11.5-14.5); Red Blood Cell (RBC) Count 3.53 mill/uL (4.20-5.40); White Blood Cell (WBC) Count 5.9 10x3/uL (4.8-10.8)
[2023-06-09 15:25] LABS: ALT (SGPT) 10 U/L (8-55); AST (SGOT) 13 U/L (5-34); Albumin 4.3 g/dL (3.4-4.8); Alkaline Phosphatase 41 U/L (40-110); Anion Gap 14 mmol/L (10-20); BUN (Urea Nitrogen) 20 mg/dL (9.8-20.1); Bilirubin, Total 0.3 mg/dL (0.2-1.2); Calc. Creatinine Clearance 0 mL/min (70-130); Calcium 9.4 mg/dL (7.8-10.44); Carbon Dioxide 24 mmol/L (23-31); Chloride 110 mmol/L (98-107); Estimated GFR 43; Globulin 2.3 g/dL (2.4-3.5); Glucose 121 mg/dL (83-110); Magnesium 2.2 mg/dL (1.6-2.6); Potassium 4.6 mmol/L (3.5-5.1); Protein, Total 6.6 g/dL (5.8-8.1); Sodium 143 mmol/L (136-145)
[2023-06-09 15:33] LABS: Troponin I 0.028 ng/mL (< 0.028)
[2023-06-09] MEDS ORDERED: Ketorolac Tromethamine 30 MG/ML VIAL ONE (17:42)
[2023-06-09 17:46] LABS: Bacteria/HPF None Seen HPF (None Seen); Bilirubin Negative (Negative); Blood, Urine Negative (Negative); CAUTI Indications for Culture Pelvic or flank pain; Clarity Clear (Clear); Glucose, Urine (Dipstick) Normal (Negative); Ketone, Urine Negative (Negative); Leukocyte Negative Leu/uL (Negative); Nitrite Negative (Negative); Protein, Urine (Dipstick) 20 mg/dL (Neg-Trace); RBC/HPF 0-3 HPF (0-3); Squamous Epithelial 0-3 HPF (0-3); Urobilinogen Normal mg/dL (Less than 2); WBC/HPF 0-3 HPF (0-3); pH, Urine 5.5 (5.0-9.0)
[2023-06-09 17:51] LABS: Urine Culture Reflex No No
== END 2023-06-09 18:34 | disposition home or self-care (01) ==
LOC: ERS 14:09
DX: S30.1XXA Contusion of abdominal wall, initial encounter (principal); R53.1 Weakness; E78.5 Hyperlipidemia, unspecified; I10 Essential (primary) hypertension; Z79.899 Other long term (current) drug therapy
CPT/HCPCS: 36415; 71275; 80053; 81001; 83735; 83880; 84484; 85025; 93005; 93970; 96374; J1885

== ENCOUNTER 2023-10-27 | Inpatient (IN) | payer OTHER | END 2023-10-28 17:13 | disposition home or self-care (01) | DRG 811 | PROVIDERS: ADMIT Internal Medicine | PROC: 30233N1 Transfusion of Nonautologous Red Blood Cells into Peripheral Vein, Percutaneous Approach (ICD-10-PCS; principal; 2023-10-27) | DX: D50.9 Iron deficiency anemia, unspecified (principal); I50.33 Acute on chronic diastolic (congestive) heart failure; N17.9 Acute kidney failure, unspecified; E78.5 Hyperlipidemia, unspecified; J44.9 Chronic obstructive pulmonary disease, unspecified; R00.2 Palpitations; D72.819 Decreased white blood cell count, unspecified; I11.0 Hypertensive heart disease with heart failure; E03.9 Hypothyroidism, unspecified; I35.0 Nonrheumatic aortic (valve) stenosis; Z90.710 Acquired absence of both cervix and uterus; Z90.722 Acquired absence of ovaries, bilateral; Z82.49 Family history of ischemic heart disease and other diseases of the circulatory system; Z83.3 Family history of diabetes mellitus; Z80.42 Family history of malignant neoplasm of prostate; Z80.0 Family history of malignant neoplasm of digestive organs; Z87.891 Personal history of nicotine dependence ==

== ENCOUNTER 2024-05-01 11:18 | Outpatient (CLI) | payer OTHER | END 2024-05-01 11:19 | disposition home or self-care (01) | LOC: BICRAD 11:18 | PROVIDERS: ATTEND Family Medicine | DX: M54.50 Low back pain, unspecified (principal); M47.816 Spondylosis without myelopathy or radiculopathy, lumbar region; M43.16 Spondylolisthesis, lumbar region; M85.88 Other specified disorders of bone density and structure, other site | CPT/HCPCS: 72100 ==

== ENCOUNTER 2025-06-06 08:02 | Outpatient (CLI) | payer OTHER | END 2025-06-06 08:03 | disposition home or self-care (01) | LOC: BICMAMMO 08:02 | PROVIDERS: ATTEND Physician Assistant | DX: M81.0 Age-related osteoporosis without current pathological fracture (principal) | CPT/HCPCS: 77080 ==